=== PATIENT | female | born 1975 | race African-American/Black ===

== ENCOUNTER 2023-04-20 05:35 | Emergency (ER) | payer OTHER ==
[~2023-04-20] VITALS: Ht 160 cm; Wt 167.8 kg
[2023-04-20 05:35] VITALS: BP 165/100; PULSE 84; RESP 18; TEMP 97.7; O2SAT 97
[2023-04-20 06:17] VITALS: O2SAT 98
[2023-04-20] MEDS ORDERED: LORA1T1237 PO (06:57)
[2023-04-20] MEDS ORDERED: PROM118S6 PO (06:58)
[2023-04-20 07:03] LABS: FLU A ANTIGEN negative (NEGATIVE); FLU B ANTIGEN negative (NEGATIVE)
[2023-04-20] MEDS ORDERED: NIRM1TAB PO ×2 (07:16→08:40)
== END 2023-04-20 07:22 | disposition home or self-care (01) ==
LOC: MED 05:35
DX: U07.1 COVID-19 (principal); J40 Bronchitis, not specified as acute or chronic; R09.82 Postnasal drip; I10 Essential (primary) hypertension; Z79.899 Other long term (current) drug therapy; Z98.890 Other specified postprocedural states; Z98.84 Bariatric surgery status
CPT/HCPCS: 71045; 87426; 87804; 99284; Q0092